=== PATIENT | female | born 1995 ===

== ENCOUNTER 2024-08-26 12:23 | Inpatient (IN) ==
[2024-08-26] MEDS ORDERED: OXYTOCIN 30 UNITS/NSS 30 UNITS/500 ML BAG IV PRN (12:37)
[2024-08-26] MEDS ORDERED: LIDOCAINE 1% LOCAL 20 ML VIAL INFIL PRN (12:37)
[2024-08-26] MEDS: LIDOCAINE 1% LOCAL 20 ML VIAL INFIL PRN (13:15)
[2024-08-26] MEDS: OXYTOCIN 30 UNITS/NSS 30 UNITS/500 ML BAG IV PRN (13:19)
--- NOTE | 2024-08-26 13:31 | Delivery Summary ---
Vaginal Delivery Summary Date of Service August 26, 2024 Vaginal Delivery Summary and 1st Degree LAC Patient arrived at 10 cm with a bulging membranes and baby applied +0 station did not feel it was time for an epidural I offered artificial rupture of membranes and they agreed note a [place] after school teacher was used during this entire process. The patient then pushed over several contractions delivering a baby in occiput anterior position the shoulder was depressed under the symphysis easily and then gentle traction on the baby delivering a live vigorous female infant without difficulty. No nuchal cord and fluid was clear. Cord clamped and baby handed to mother placenta removed with traction cord blood been obtained already there was a small first-degree tear on both sides of the clitoris this was repaired with 3-0 Vicryl using local anesthetic prior sponge and instrument counts correct QBL was 498 MNPG Vaginal Delivery Charge Delivery Type Details: and 1st Degree LAC
[2024-08-26] MEDS ORDERED: bisacodyL 10 MG SUPP PR PRN (13:57)
[2024-08-26] MEDS ORDERED: ACETAMINOPHEN 325 MG TAB PO PRN (13:57)
[2024-08-26] MEDS ORDERED: oxyCODONE/ACETAMINOPHEN 5mg/325mg TAB PO PRN (13:57)
[2024-08-26] MEDS ORDERED: IBUPROFEN 600 MG TAB PO PRN (13:57)
[2024-08-26] MEDS ORDERED: HYDROCORTISONE ACETATE 25 MG SUPP PR PRN (13:57)
[2024-08-26] MEDS ORDERED: Patient's HEIGHT &/or WEIGHT Needed ONE (14:15)
[2024-08-26] MEDS: DIPHTHER/TETAN/PERTUS Vaccine (Tdap, Adol/Adult) 0.5mL IM ONE (15:59)
[2024-08-26] MEDS: DOCUSATE SODIUM 100 MG CAP PO SCH (20:27)
[2024-08-27 06:42] LABS: Hematocrit (blood only) 34.9 % (37.0-47.0); Hemoglobin 11.7 g/dl (12.0-16.0); Mean Corpuscular Hgb Conc 33.5 g/dL (32.0-36.0); Mean Corpuscular Volume 92.6 fL (80.0-100.0); Mean Platelet Volume 11.8 fL (9.4-12.4); Platelet Count 159 K/uL (130-400); RDW Coefficient of Variation 14.4 % (11.5-14.5); RDW Standard Deviation 48.4 fL (36.4-46.3); Red Blood Count 3.77 M/uL (4.20-5.40); White Blood Count 12.25 K/ul (4.8-10.8)
--- NOTE | 2024-08-27 07:20 | Obstetrical Progress Note ---
Date of Service August 27, 2024 Assessment & Plan (1) Encounter for supervision of normal intrauterine in primigravida, antepartum: day #1 patient is doing well ambulating no extremity pain no depression continue current care Subjective Ambulation: ambulating normally Voiding: no voiding problems Passing Gas:: Yes Diet Tolerance:: regular diet Lochia:: Small Physical Exam Constitutional WD/WN, vitals as above well developed and well nourished Respiratory normal respiratory effort, lungs clear to auscultation normal respiratory effort Cardiovascular RRR, no murmur, no edema Gastrointestinal (Abdomen) normal bowel sounds, soft, nontender, no hepatosplenomegaly Results & Data Vital Signs (Past 12 Hours) Vital Signs Temp Pulse Resp BP Pulse Ox O2 Del Method 08/27/24 03:05 97.9 F 77 18 111/72 97 Room Air 08/26/24 23:20 70 18 100/64 99 Room Air 08/26/24 19:45 Room Air 08/26/24 19:45 99.0 F 78 16 119/80 99 Room Air
[2024-08-27] MEDS: PRENATAL VITAMIN 1 TAB PO SCH (07:57)
[2024-08-27] MEDS: bisacodyL 5 MG TABEC PO SCH (20:30)
[2024-08-27 23:04] VITALS: RESP 16
[2024-08-28 06:57] LABS: Hematocrit (blood only) 36.8 % (37.0-47.0); Hemoglobin 12.3 g/dl (12.0-16.0)
[2024-08-28] MEDS: BENZOCAINE 20% SPRY 85 APPLN/85 GM CAN EXT PRN (07:57)
--- NOTE | 2024-08-28 08:01 | Obstetrical Progress Note ---
Date of Service August 28, 2024 Assessment & Plan (1) Encounter for supervision of normal intrauterine in primigravida, antepartum: PPD#2 doing well, does have some trouble with incontinence on the way to the bathroom - this has gotten better but not yet resolved. Anticipate continued improvement in the coming days/weeks. Followup 6w in office PP. Reviewed DC instructions. Subjective Ambulation: ambulating normally Voiding: no voiding problems Diet Tolerance:: regular diet Lochia:: Moderate Review of Systems All systems reviewed & are unremarkable except as noted in HPI & below Physical Exam Constitutional WD/WN, vitals as above no acute distress Respiratory normal respiratory effort Cardiovascular Rate/Rhythm: regular rate and regular rhythm Gastrointestinal (Abdomen) Inspection/Auscultation: abdomen normal to inspection; abdomen not distended Percussion/Palpation: abdomen soft Genitourinary OB Exam Abdomen: + fundal height Fundus: + firm; not tender Results & Data Vital Signs (Past 12 Hours) Vital Signs Temp Pulse Resp BP Pulse Ox O2 Del Method 08/27/24 23:02 37 C 71 16 109/74 99 Room Air
[2024-08-28 08:17] VITALS: BP 102/63; TEMP 98.2; O2SAT 98
[2024-08-28 15:43] VITALS: PULSE 71
== END 2024-08-28 15:15 | disposition home or self-care (01) | DRG 807 ==
LOC: OPB 12:23 → 4S1 12:27 → 4E2 16:10